=== PATIENT | male | born 1945 | race Two or more races ===

== ENCOUNTER → 2018-09-08 | Outpatient (CLI) | payer OTHER | END | disposition home or self-care (01) | LOC: HKI 15:30 | DX: M25.561 Pain in right knee (principal); Z96.651 Presence of right artificial knee joint | CPT/HCPCS: 73562; 73562-50; 77073 ==

== ENCOUNTER → 2018-10-15 | Outpatient (CLI) | payer OTHER | END | disposition home or self-care (01) | LOC: HKI 09:42 | DX: M25.561 Pain in right knee (principal); R22.41 Localized swelling, mass and lump, right lower limb | CPT/HCPCS: 20610 ==

== ENCOUNTER 2018-12-09 05:26 | Inpatient (IN) | payer OTHER ==
[2018-12-09] MEDS: LACTATED RINGER'S 1,000 ML IV ×4 (06:31→23:00)
[2018-12-09] MEDS: LANSOPRAZOLE 30 MG CAP PO (06:32)
[2018-12-09] MEDS: ONDANSETRON 4 MG INJ IV (06:32)
[2018-12-09] MEDS: ACETAMINOPHEN 1000MG/100ML IV 100 ML IVPB (06:32)
[2018-12-09] MEDS: CELECOXIB 200 MG CAP PO (06:33)
[2018-12-09] MEDS: GABAPENTIN 300 MG CAP PO ×2 (06:33→21:34)
[2018-12-09] MEDS ORDERED: TRANEXAMIC ACID 1GM/100ML(PMX) 200 ML (07:20)
[2018-12-09] MEDS ORDERED: EPHEDrine 25 MG/5 ML SYG (07:30)
[2018-12-09] MEDS ORDERED: SEVOFLURANE 15 MIN (07:30)
[2018-12-09] MEDS ORDERED: CEFAZOLIN 1 GM INJ ×2 (07:30→07:34)
[2018-12-09] MEDS ORDERED: DEXAMETHASONE 4 MG/ML 5 ML INJ (07:34)
[2018-12-09] MEDS ORDERED: ONDANSETRON 4 MG INJ (07:34)
[2018-12-09] MEDS ORDERED: NEOSTIGMINE 3 MG/3 ML SYRINGE (07:34)
[2018-12-09] MEDS ORDERED: ROCURONIUM 50 MG INJ (07:34)
[2018-12-09] MEDS ORDERED: PROPOFOL 20 ML (07:34)
[2018-12-09] MEDS ORDERED: MIDAZOLAM 1 MG/ML 2 ML INJ (07:34)
[2018-12-09] MEDS ORDERED: FENTAnyl 50 MCG/ML VIAL (07:34)
[2018-12-09] MEDS ORDERED: GLYCOPYRROLATE 0.4 MG INJ (07:34)
[2018-12-09] MEDS ORDERED: morphine SULFATE/PF (10 MG/10 ML) INJ (07:36)
[2018-12-09] MEDS: CEFAZOLIN 2 GM/50 ML (PMX) 50 ML IVPB ×2 (07:58→17:59)
[2018-12-09] MEDS ORDERED: LABETALOL HCL 20MG INJ IV (08:30)
[2018-12-09] MEDS ORDERED: ONDANSETRON 4 MG INJ IV ×2 (08:30)
[2018-12-09] MEDS ORDERED: MEPERIDINE 25 MG INJ IV (08:30)
[2018-12-09] MEDS ORDERED: DIPHENHYDRAMINE 50 MG INJ IV ×3 (08:30→17:00)
[2018-12-09] MEDS ORDERED: MIDAZOLAM 1 MG/ML 2 ML INJ IV (08:30)
[2018-12-09] MEDS ORDERED: HYDROmorphONE 1 MG/5 ML IV SYRINGE IV ×3 (08:30)
[2018-12-09] MEDS ORDERED: NALOXONE (0.4 MG/ML) INJ IV ×2 (08:30→17:00)
[2018-12-09] MEDS ORDERED: OXYCODONE/ACETAMINOPHEN (5/325) TAB PO ×2 (08:30)
[2018-12-09] MEDS ORDERED: IPRATROPIUM (NEB) 0.5 MG/2.5 ML AMP HHN (08:30)
[2018-12-09] MEDS ORDERED: TRIMETHOBENZAMIDE 100 MG/ML VIAL IM ×2 (08:30)
[2018-12-09] MEDS ORDERED: hydrALAzine 20 MG INJ IV (08:30)
[2018-12-09] MEDS ORDERED: NALBUPHINE HCL (10 MG/1 ML) INJ IV (08:30)
[2018-12-09] MEDS ORDERED: ALBUTEROL 0.083% (NEB) 2.5 MG/3 ML AMP HHN (08:30)
[2018-12-09] MEDS ORDERED: FENTAnyl 50 MCG/ML VIAL IV ×3 (08:30)
[2018-12-09] MEDS ORDERED: HYDROmorphONE 0.5 MG/0.5 ML SYG IV ×2 (08:30)
[2018-12-09] MEDS: TRANEXAMIC ACID 1GM/100ML(PMX) 100 ML PRE-OP IVPB (08:32)
[2018-12-09] MEDS: VANCOMYCIN 1 GM INJ IVPB ×2 (09:33)
[2018-12-09] MEDS: TOBRAMYCIN 1.2 GM POWDER ZFS (09:33)
[2018-12-09 09:53] LABS: SYN FLD MN % 73.9 &; SYN FLD PMN % 26.1 % (0.0-25.0); SYN FLD WBC 1228 /cmm (0-150)
[2018-12-09 10:42] LABS: SYN FLD SOURCE RIGHT KNEE
[2018-12-09 10:42] LABS: SYN FLD CLARITY BLOODY; SYN FLD COLOR RED; SYN FLD VOLUME 10.5 mL (0-3.5)
[2018-12-09 10:45] LABS: PATH REVIEW? NO; SYN FLD CRYSTALS NO CRYSTALS SEEN (None seen)
[2018-12-09] MEDS ORDERED: ROPIVACAINE 0.5 % 30 ML VIAL (12:05)
[2018-12-09] MEDS: TRANEXAMIC ACID 1GM/100ML(PMX) 100 ML AT CLOSING IVPB ×2 (16:02)
[2018-12-09] MEDS ORDERED: SENNA/DOCUSATE NA (8.6MG/50MG) TAB PO (17:00)
[2018-12-09] MEDS ORDERED: NACL 0.9% 3 ML SYG IV (17:00)
[2018-12-09] MEDS ORDERED: oxyCODONE 5 MG TAB PO ×2 (17:00)
[2018-12-09] MEDS ORDERED: BISACODYL 10 MG SUPP PR (17:00)
[2018-12-09] MEDS ORDERED: NA PHOSPHATE/BIPHOS 133 ML ENEMA PR (17:00)
[2018-12-09] MEDS ORDERED: MAGNESIUM HYDROXIDE 30ML CUP PO (17:00)
[2018-12-09] MEDS ORDERED: HYDROmorphONE 1 MG/ML SYG IV (17:00)
[2018-12-09] MEDS: DOCUSATE SODIUM 100 MG CAP PO (17:34)
[2018-12-09] MEDS: EPHEDrine 25 MG/5 ML SYG IV (17:42)
[2018-12-09] MEDS: ACETAMINOPHEN 500 MG TAB PO (21:34)
[2018-12-10] MEDS: CEFAZOLIN 2 GM/50 ML (PMX) 50 ML IVPB ×2 (00:35→08:47)
[2018-12-10 05:07] LABS: ADD MAN DIFF? NO
[2018-12-10 05:11] LABS: WHITE BLOOD COUNT 9.3 10^3/ul (4.8-10.8)
[2018-12-10 05:11] LABS: BASOPHILS % 0.1 % (0.0-2.0); HEMATOCRIT 28.4 % (42.0-52.0); HEMOGLOBIN 9.1 g/dl (14.0-18.0); LYMPHOCYTES # 0.6 10^3/ul (0.8-2.9); LYMPHOCYTES % 6.9 % (15.0-51.0); MEAN CORPUSCULAR HEMOGLOBIN 29.2 pg (29.0-33.0); MEAN PLATELET VOLUME 11.3 fl (7.4-10.4); MONOCYTE # 0.4 10^3/ul (0.3-0.9); MONOCYTES % 3.9 % (0.0-11.0); NEUTROPHIL # 8.3 10^3/ul (1.6-7.5); NEUTROPHILS % 88.8 % (39.0-77.0); PLATELET COUNT 133 10^3/UL (140-415); RED BLOOD COUNT 3.12 10^6/ul (4.70-6.10); RED CELL DISTRIBUTION WIDTH 13.2 % (11.5-14.5)
[2018-12-10 05:30] LABS: ANION GAP 10 (5-13); BLOOD UREA NITROGEN 24 mg/dl (7-20); CALCIUM 8.2 mg/dl (8.4-10.2); CARBON DIOXIDE 26 mmol/L (21-31); CHLORIDE 104 mmol/L (97-110); GLUCOSE 229 mg/dl (70-220); POTASSIUM 3.9 mmol/L (3.5-5.1); SODIUM 140 mmol/L (135-144)
[2018-12-10] MEDS: ACETAMINOPHEN 500 MG TAB PO ×3 (06:53→22:03)
[2018-12-10] MEDS: LACTATED RINGER'S 1,000 ML IV ×2 (07:00→19:30)
[2018-12-10] MEDS: DOCUSATE SODIUM 100 MG CAP PO ×2 (08:46→22:02)
[2018-12-10] MEDS: ASPIRIN (EC) 81 MG TAB PO ×2 (08:46→22:15)
[2018-12-10 09:20] LABS: ADD UMIC YES; UR ASCORBIC ACID NEGATIVE (NEGATIVE); UR BILIRUBIN (Dip) NEGATIVE (NEGATIVE); UR BLOOD (Dip) 1+ mg/dL (NEGATIVE); UR CLARITY CLEAR (CLEAR); UR COLOR YELLOW (YELLOW); UR GLUCOSE (Dip) NEGATIVE (NEGATIVE); UR KETONES (Dip) NEGATIVE (NEGATIVE); UR LEUKOCYTE ESTERASE (Dip) NEGATIVE Leu/ul (NEGATIVE); UR NITRITE (Dip) NEGATIVE (NEGATIVE); UR RBC 17 /HPF (0-5); UR SPECIFIC GRAVITY (Dip) 1.025 (1.003-1.030); UR TOTAL PROTEIN (Dip) NEGATIVE (NEGATIVE); UR UROBILINOGEN (Dip) NEGATIVE (NEGATIVE); UR WBC 3 /HPF (0-5)
[2018-12-10] MEDS ORDERED: GLUCAGON 1 MG INJ IM (13:00)
[2018-12-10] MEDS ORDERED: DEXTROSE 50% 50 ML SYRINGE IV ×2 (13:00)
[2018-12-10] MEDS ORDERED: GLUCOSE GEL 15 GRAM TUBE PO ×2 (13:00)
[2018-12-10] MEDS ORDERED: GLUCOSE GEL 15 GRAM TUBE BUCCAL (13:00)
[2018-12-10 13:08] LABS: HEMOGLOBIN A1C 5.9 % (0-5.9)
[2018-12-10] MEDS: BETHANECHOL 25 MG TAB PO (13:22)
[2018-12-10] MEDS: OXYBUTYNIN 5 MG TAB PO ×2 (15:55→22:04)
[2018-12-10] MEDS ORDERED: ONDANSETRON 4 MG INJ IV (17:00)
[2018-12-10] MEDS ORDERED: INSULIN ASPART [NOVOLOG] 3 ML PEN SC (17:55)
[2018-12-10] MEDS: GABAPENTIN 300 MG CAP PO (22:03)
[2018-12-10] MEDS: TAMSULOSIN (SR) 0.4 MG CAP PO (22:03)
[2018-12-11] MEDS ORDERED: ACCU-CHEK XX (02:00)
[2018-12-11 05:08] LABS: ADD MAN DIFF? NO
[2018-12-11 05:12] LABS: BASOPHILS % 0.4 % (0.0-2.0); EOSINOPHILS # 0.1 10^3/ul (0.0-0.5); EOSINOPHILS % 0.7 % (0.0-7.0); HEMATOCRIT 23.3 % (42.0-52.0); HEMOGLOBIN 7.4 g/dl (14.0-18.0); LYMPHOCYTES # 1.4 10^3/ul (0.8-2.9); LYMPHOCYTES % 17.3 % (15.0-51.0); MEAN CORPUSCULAR HEMOGLOBIN 28.6 pg (29.0-33.0); MEAN CORPUSCULAR HGB CONC 31.8 g/dl (32.0-37.0); MEAN PLATELET VOLUME 11.9 fl (7.4-10.4); MONOCYTE # 0.5 10^3/ul (0.3-0.9); MONOCYTES % 5.7 % (0.0-11.0); NEUTROPHIL # 6.2 10^3/ul (1.6-7.5); NEUTROPHILS % 75.7 % (39.0-77.0); PLATELET COUNT 117 10^3/UL (140-415); POSITIVE DIFF @See below; RED BLOOD COUNT 2.59 10^6/ul (4.70-6.10); RED CELL DISTRIBUTION WIDTH 13.5 % (11.5-14.5)
[2018-12-11 05:12] LABS: WHITE BLOOD COUNT 8.2 10^3/ul (4.8-10.8)
[2018-12-11 05:36] LABS: ANION GAP 6 (5-13); BLOOD UREA NITROGEN 23 mg/dl (7-20); CALCIUM 8.3 mg/dl (8.4-10.2); CARBON DIOXIDE 32 mmol/L (21-31); CHLORIDE 103 mmol/L (97-110); CREATININE 0.81 mg/dl (0.61-1.24); GLUCOSE 126 mg/dl (70-220); POTASSIUM 3.3 mmol/L (3.5-5.1); SODIUM 141 mmol/L (135-144)
[2018-12-11 05:37] LABS: PHOSPHORUS 2.4 mg/dl (2.5-4.9)
[2018-12-11 05:37] LABS: MAGNESIUM 1.5 mg/dl (1.7-2.5)
[2018-12-11] MEDS: PANTOPRAZOLE (EC) 40 MG TAB PO (06:28)
[2018-12-11] MEDS: ACETAMINOPHEN 500 MG TAB PO ×3 (06:29→21:49)
[2018-12-11] MEDS: OXYBUTYNIN 5 MG TAB PO ×2 (09:39→20:35)
[2018-12-11] MEDS: DOCUSATE SODIUM 100 MG CAP PO ×2 (09:39→20:35)
[2018-12-11] MEDS: ASPIRIN (EC) 81 MG TAB PO ×2 (09:39→20:35)
[2018-12-11 14:42] LABS: HEMATOCRIT 23.7 % (42.0-52.0); HEMOGLOBIN 7.7 g/dl (14.0-18.0)
[2018-12-11] MEDS: POTASSIUM CHLORIDE 20 MEQ POWDER FOR ORAL SOLN PO (14:58)
[2018-12-11] MEDS: MAGNESIUM OXIDE 400 MG TAB PO (14:59)
[2018-12-11] MEDS: POTASSIUM PHOSPHATE 20 MEQ in SOD CHLORIDE 0.9% 250 ML IVPB (15:34)
[2018-12-11] MEDS: TRANEXAMIC ACID 1GM/100ML(PMX) 100 ML IVPB (20:35)
[2018-12-11] MEDS: GABAPENTIN 300 MG CAP PO (20:35)
[2018-12-11] MEDS: TAMSULOSIN (SR) 0.4 MG CAP PO (21:49)
[2018-12-12 05:09] LABS: ADD MAN DIFF? NO
[2018-12-12 05:16] LABS: WHITE BLOOD COUNT 6.3 10^3/ul (4.8-10.8)
[2018-12-12 05:16] LABS: BASOPHILS % 0.5 % (0.0-2.0); EOSINOPHILS # 0.1 10^3/ul (0.0-0.5); EOSINOPHILS % 1.1 % (0.0-7.0); HEMATOCRIT 22.7 % (42.0-52.0); HEMOGLOBIN 7.4 g/dl (14.0-18.0); LYMPHOCYTES # 1.2 10^3/ul (0.8-2.9); LYMPHOCYTES % 19.7 % (15.0-51.0); MEAN CORPUSCULAR HEMOGLOBIN 29.4 pg (29.0-33.0); MEAN CORPUSCULAR HGB CONC 32.6 g/dl (32.0-37.0); MEAN CORPUSCULAR VOLUME 90.1 fl (82.0-101.0); MEAN PLATELET VOLUME 11.6 fl (7.4-10.4); MONOCYTE # 0.5 10^3/ul (0.3-0.9); MONOCYTES % 7.5 % (0.0-11.0); NEUTROPHIL # 4.4 10^3/ul (1.6-7.5); NEUTROPHILS % 70.9 % (39.0-77.0); PLATELET COUNT 121 10^3/UL (140-415); RED BLOOD COUNT 2.52 10^6/ul (4.70-6.10); RED CELL DISTRIBUTION WIDTH 13.5 % (11.5-14.5)
[2018-12-12 05:41] LABS: ANION GAP 1 (5-13); BLOOD UREA NITROGEN 14 mg/dl (7-20); CALCIUM 8.5 mg/dl (8.4-10.2); CARBON DIOXIDE 37 mmol/L (21-31); CHLORIDE 101 mmol/L (97-110); GLUCOSE 127 mg/dl (70-220); SODIUM 139 mmol/L (135-144)
[2018-12-12 05:42] LABS: MAGNESIUM 1.4 mg/dl (1.7-2.5)
[2018-12-12 05:42] LABS: PHOSPHORUS 2.9 mg/dl (2.5-4.9)
[2018-12-12] MEDS: ACETAMINOPHEN 500 MG TAB PO ×3 (05:52→14:31)
[2018-12-12] MEDS: PANTOPRAZOLE (EC) 40 MG TAB PO (05:52)
[2018-12-12] MEDS: POTASSIUM CHLORIDE 100 ML IVPB ×2 (08:29→14:21)
[2018-12-12] MEDS: DOCUSATE SODIUM 100 MG CAP PO (09:00)
[2018-12-12] MEDS: OXYBUTYNIN 5 MG TAB PO (09:29)
[2018-12-12] MEDS: ASPIRIN (EC) 81 MG TAB PO (09:29)
[2018-12-12] MEDS: oxyCODONE 5 MG TAB PO ×2 (10:11→18:32)
[2018-12-12] MEDS: MAGNESIUM SULFATE 3 GM in DEXTROSE 5% 100 ML IVPB (11:12)
== END 2018-12-12 19:00 | disposition home or self-care (01) | DRG 467 ==
LOC: REC 05:26 → MS1 18:18
PROVIDERS: Orthopaedic Surgery Adult Reconstructive Orthopaedic Surgery
PROC: 0SPC0JZ Removal of Synthetic Substitute from Right Knee Joint, Open Approach (ICD-10-PCS; principal; 2018-12-09 07:30)
PROC: 0SRC0J9 Replacement of Right Knee Joint with Synthetic Substitute, Cemented, Open Approach (ICD-10-PCS; 2018-12-09 07:30)
DX: T84.032A Mechanical loosening of internal right knee prosthetic joint, initial encounter (principal); D62 Acute posthemorrhagic anemia; E66.9 Obesity, unspecified; Z68.30 Body mass index [BMI] 30.0-30.9, adult; N40.0 Benign prostatic hyperplasia without lower urinary tract symptoms; K21.9 Gastro-esophageal reflux disease without esophagitis
CPT/HCPCS: 73560; 80048; 81001; 82962; 83036; 83735; 84100; 85014; 85018; 85025; 86850; 86900; 86901; 86920; 87070; 87075; 87081; 87086; 87102; 87116; 88300; 88305; 88331; 89060; 97116; 97161; 97165; 97530; 97535